=== PATIENT | female | born 1960 | race African-American/Black ===

== ENCOUNTER 2017-02-21 14:29 | Emergency (ER) | payer OTHER ==
[~2017-02-21] VITALS: Ht 149.9 cm; Wt 73.5 kg
[~2017-02-21 14:29] MED LIST: AMIT25TA9 PO; ASPI81TA42 PO; ATOR40TA28 PO; BECL8.7A5 IH; BECL8.7A6 IH; CALC260T6 PO; CARI350 PO; DIVA500T35 PO; FURO40 PO; GABA-533 PO; HYDR200T4 PO; HYDR25TA PO; LISI-662 PO; MONT10TA21 PO; MULT-1203 PO; OMEP20 PO
[2017-02-21] MEDS ORDERED: KDUR10 PO (15:04)
[2017-02-21] MEDS ORDERED: PROM25 PO (15:04)
[2017-02-21] MEDS ORDERED: NITR.4 SL (15:04)
[2017-02-21] MEDS ORDERED: METO-325 PO (15:04)
[2017-02-21] MEDS ORDERED: AMLO-511 PO (15:04)
[2017-02-21] MEDS ORDERED: RANO500T3 PO (15:04)
[2017-02-21] MEDS ORDERED: MORPHINE SULFATE 4 MG/ML SYRINGE IM ONE (20:00)
[2017-02-21] MEDS ORDERED: CARISOPRODOL 350 MG TABLET PO ONE (20:00)
[2017-02-21] MEDS ORDERED: ONDANSETRON HCL 4 MG/2 ML VIAL IM ONE (20:00)
[2017-02-21 21:06] VITALS: BP 121/78
== END 2017-02-21 21:08 | disposition home or self-care (01) ==
LOC: EMS 14:31
DX: M62.830 Muscle spasm of back (principal); G89.29 Other chronic pain; I10 Essential (primary) hypertension; I25.2 Old myocardial infarction
CPT/HCPCS: 93005; 96372; 99284; J2270; J2405